=== PATIENT | female | born 1960 | race Caucasian/White ===

== ENCOUNTER 2017-06-16 18:41 | Emergency (ER) | payer SELFPAY ==
[~2017-06-16] VITALS: Ht 152.4 cm; Wt 53.5 kg
[2017-06-16 18:45] VITALS: Ht 152.4 cm; Wt 53.5 kg
[2017-06-16 19:55] LABS: BASOPHILS % 0.4 % (0.0-2.0); EOSINOPHILS # 0.6 10^3/ul (0.0-0.5); EOSINOPHILS % 12.7 % (0.0-7.0); HEMATOCRIT 38.3 % (37.0-47.0); HEMOGLOBIN 12.3 g/dl (12.0-16.0); LYMPHOCYTES # 1.9 10^3/ul (0.8-2.9); LYMPHOCYTES % 38.2 % (15.0-51.0); MEAN CORPUSCULAR HEMOGLOBIN 29.3 pg (29.0-33.0); MEAN CORPUSCULAR HGB CONC 32.1 g/dl (32.0-37.0); MEAN CORPUSCULAR VOLUME 91.2 fl (82.0-101.0); MEAN PLATELET VOLUME 9.4 fl (7.4-10.4); MONOCYTE # 0.5 10^3/ul (0.3-0.9); MONOCYTES % 9.5 % (0.0-11.0); NEUTROPHIL # 1.9 10^3/ul (1.6-7.5); PLATELET COUNT 307 10^3/UL (140-415); RED CELL DISTRIBUTION WIDTH 13.1 % (11.5-14.5)
--- NOTE | 2017-06-16 19:57 | ERA ---
ER Documentation Chief Complaint Date/Time DATE: 06/16/17 TIME: 19:33 Chief Complaint redness both eyes x 2 days (MEET VERA PA-C) HPI 56-year-old female with a chief complaint of left eye redness and pain at 2-3 days. Patient denies any decrease in vision however patient does state that her vision is more blurry. Patient has never had symptoms like this before. Denies contacts or eyeglasses use. No cardiac disorders. History of diabetes mellitus. Denies foreign body sensation, photophobia, history of glaucoma, headache, or fever/chills. Has not taken any medications to relieve the symptoms. Patient has no other complaints and describes no other associated manifestations. Nursing notes have been reviewed and are consistent with history given. (MEET VERA PA-C) ROS All systems reviewed and are negative except as per history of present illness. (MEET VERA PA-C) Medications Home Meds Active Scripts Polymyxin B Sulfate-TMP* (Polymyxin B-TMP Eye Drops*) 10 Ml Drops, 1 DROP LEFT EYE Q3H for 7 Days, EA Prov:MARGIE SEVILLA PA-C 06/16/17 Naproxen* (Naprosyn*) 500 Mg Tablet, 500 MG PO BID for 7 Days, TAB Prov:MARGIE SEVILLA PA-C 06/16/17 Hydrocodone/Acetaminophen ([place] 5-325 Tablet) 1 Each Tablet, 1 EACH PO Q6, #7 TAB Prov:MARGIE SEVILLA PA-C 06/16/17 Clindamycin Hcl* (Clindamycin Hcl*) 300 Mg Capsule, 300 MG PO TID for 10 Days, CAP Prov:MARGIE SEVILLA PA-C 06/16/17 Allergies Allergies: Coded Allergies: No Known Drug Allergies (Verified Allergy, Unknown, 06/16/17) Uncoded Allergies: nka (Allergy, Mild, 05/05/10) PMhx/Soc History of Surgery: Yes (hernia SX) Anesthesia Reaction: No Hx Neurological Disorder: No Hx Respiratory Disorders: No Hx Cardiac Disorders: Yes (HIGH CHOL AND HTN (TREATS WITH HERBAL SUPPLEMENTS).) Hx Psychiatric Problems: No Hx Miscellaneous Medical Probl: No Hx Alcohol Use: No Hx Substance Use: No Hx Tobacco Use: No Smoking Status: Never smoker (MEET VERA PA-C) Physical Exam Vitals Vital Signs Date Time Temp Pulse Resp B/P Pulse Ox O2 Delivery O2 Flow Rate FiO2 06/16/17 18:45 98.1 71 20 138/68 99 (MARGIE SEVILLA PA-C) Physical Exam Const: Well-appearing 56-year-old female no acute distress Head: Atraumatic Eyes: PERRLA. Injected conjunctivae bilaterally. No discharge noted. Extraocular movements intact with the right eye EOMI. Left eye does not track laterally. Moderate pain with extraocular movements of the left eye. Otoscope exam unremarkable. No tenderness to palpation of the periorbital area. Mild erythema spreading 2 cm around the inferior periorbital area. ENT: Normal External Ears, Nose and Mouth. Neck: Full range of motion..~ No meningismus. Resp: Clear to auscultation bilaterally Cardio: Regular rate and rhythm, no murmurs Abd: Soft, non tender, non distended. Normal bowel sounds Skin: No petechiae or rashes Back: No midline or flank tenderness Ext: No cyanosis, or edema Neur: Awake and alert Psych: Normal Mood and Affect (MEET VERA PA-C) Result Diagram: 06/16/17193806/16/171938 Results 24 hrs Laboratory Tests Test 06/16/17 19:39 White Blood Count 5.010^3/ul Red Blood Count 4.2010^6/ul Hemoglobin 12.3g/dl Hematocrit 38.3% Mean Corpuscular Volume 91.2fl Mean Corpuscular Hemoglobin 29.3pg Mean Corpuscular Hemoglobin Concent 32.1g/dl Red Cell Distribution Width 13.1% Platelet Count 84073^3/UL Mean Platelet Volume 9.4fl Neutrophils % 39.0% Lymphocytes % 38.2% Monocytes % 9.5% Eosinophils % 12.7% Basophils % 0.4% Nucleated Red Blood Cells % 0.0/100WBC Neutrophils # 1.910^3/ul Lymphocytes # 1.910^3/ul Monocytes # 0.510^3/ul Eosinophils # 0.610^3/ul Basophils # 0.010^3/ul Nucleated Red Blood Cells # 0.010^3/ul Sodium Level 139mmol/L Potassium Level 3.8mmol/L Chloride Level 108mmol/L Carbon Dioxide Level 26mmol/L Anion Gap 9 Blood Urea Nitrogen 19mg/dl Creatinine 0.79mg/dl Glucose Level 200mg/dl Calcium Level 8.6mg/dl Total Bilirubin 0.0mg/dl Direct Bilirubin 0.00mg/dl Indirect Bilirubin 0.0mg/dl Aspartate Amino Transf (AST/SGOT) 21IU/L Alanine Aminotransferase (ALT/SGPT) 32IU/L Alkaline Phosphatase 100IU/L Total Protein 6.7g/dl Albumin 3.4g/dl Globulin 3.30g/dl Albumin/Globulin Ratio 1.03 Current Medications Medications (Trade) Dose Ordered Sig/Jose Ramon Route PRN Reason Start Time Stop Time Status Last Admin Dose Admin Ibuprofen (Motrin) 600 mg ONCE ONCE PO 06/16/17 21:30 06/16/17 21:31 06/16/17 21:17 (MARGIE SEVILLA PA-C) Procedures/MDM 56-year-old female with a history of hyperlipidemia and diabetes mellitus type 2 presents with a chief complaint of left eye discomfort and redness 2-3 days as described in history and physical examination. Case was presented to my attending. CT scan with contrast was ordered of the orbits. Labs were ordered. Results were as follows: This case has been handed over to JESENIA Horan. (MEET VERA PA-C) PROCEDURE: CT orbits. CLINICAL INDICATION: Left orbital pain and swelling. TECHNIQUE: Helical axial sections were obtained through the orbits without intravenous contrast enhancement. Sagittal and coronal reformatted images were accomplished using the data from the axial images. Total exam DLP is 310.75 mGy -cm. CTDIvol is 29.00 mGy. One or more of the following dose reduction techniques were used: Automated exposure control, adjustment of the mA and/or kV according to patient size, use of iterative reconstruction technique. COMPARISON: No prior study is available for comparison. FINDINGS: There is mild mucosal thickening in the maxillary sinuses. There is no bony abnormality. There is no lytic or blastic lesion. The orbits are normal. The globes are intact. The extraocular muscles and optic nerves are normal. There is deviation of the nasal septum to the right and mucosal thickening overlying the middle and inferior turbinates. There is a left herminio bullosa. The turbinates are otherwise normal. The ostiomeatal complexes are normal. The zygomatic arches and pterygoid plates are normal. IMPRESSION: 1. Mild mucosal thickening in the maxillary sinuses. 2. Deviation of the nasal septum to the right. 3. Mucosal thickening in the nasal cavity. 4. Normal orbits. RPTAT: QQ .Flip Sandoval MD, Date Time Electronically viewed and signed by .Flip Sandoval MD, on 06/16/2017 20:18 .R/ CC: MEET VERA PA-C Patient reevaluated in the emergency department. I agree with initial exam and workup. Patient had evidence of periorbital erythema with mild swelling as well as injection and limited tracking laterally when performing extraocular movements. CT without evidence of periorbital cellulitis Or other abnormality. Updates discussed with Dr. Chiquis Sawyer who agreed with plan to treat for periorbital cellulitis with follow-up to precision mechanical instrument maker if symptoms persist. Patient expressed understanding of and agreement with plan. Based on patient's history of present illness and physical examination the decision was made to discharge. The patient was re-evaluated after ED treatment and stabilizing measures, and symptoms have improved. There is no evidence of life threatening injuries or illnesses at this time. On re-examination, patient resting in no distress, stable vital signs, reports feeling better and safe for discharge with outpatient follow up with PMD in 1-2 days. Patient given return precautions. (MARGIE SEVILLA PA-C) Departure Diagnosis: Primary Impression: Eye abnormality Condition: Stable Additional Instructions: Case is being handed over to JESENIA Horan. MEET VERA PA-C Jun 16, 2017 19:55 MARGIE SEVILLA PA-C Jun 16, 2017 20:30
[2017-06-16 20:18] LABS: ALBUMIN 3.4 g/dl (3.3-4.9); ALBUMIN/GLOBULIN RATIO 1.03; CALCIUM 8.6 mg/dl (8.4-10.2); CREATININE 0.79 mg/dl (0.44-1.00); POTASSIUM 3.8 mmol/L (3.5-5.1); TOTAL PROTEIN 6.7 g/dl (6.1-8.1)
--- NOTE | 2017-06-16 20:19 | RADRPT ---
PROCEDURE: CT orbits. CLINICAL INDICATION: Left orbital pain and swelling. TECHNIQUE: Helical axial sections were obtained through the orbits without intravenous contrast en hancement. Sagittal and coronal reformatted images were accomplished using the data from the axial images. Total exam DLP is 310.75 mGy-cm. CTDIvol is 29.00 mGy. One or more of the following dose reduction techniques were used: Automated exposure control, adjustment of the mA and/or kV according to patient size, use of iterative reconstruction technique. COMPARISON: No prior study is available for comparison. FINDINGS: There is mild mucosal thickening in the maxillary sinuses. There is no bony abnormality. There is no lytic or blastic lesion. The orbits are normal. The globes are intact. The extraocular muscles and optic nerves are normal. There is deviation of the nasal septum to the right and mucosal thickening overlying the middle and inferior turbinates. There is a left herminio bullosa. The turbinates are otherwise normal. The ostiomeatal complexes are normal. The zygomatic arches and pterygoid plates are normal. IMPRESSION: 1. Mild mucosal thickening in the maxillary sinuses. 2. Deviation of the nasal septum to the right. 3. Mucosal thickening in the nasal cavity. 4. Normal orbits. RPTAT: QQ .Flip Sandoval MD, MD Date Time Electronically viewed and signed by .Flip Sandoval MD, on 06/16/2017 20:18 .R/
[2017-06-16] MEDS ORDERED: POLY10DR19 LEFT EYE (21:18)
[2017-06-16] MEDS ORDERED: CLIN-73 PO (21:18)
[2017-06-16] MEDS ORDERED: NAPR-260 PO (21:18)
[2017-06-16] MEDS ORDERED: HYDR-906 PO (21:18)
[2017-06-16] MEDS ORDERED: IBUPROFEN 600 MG TAB PO ONE (21:30)
[2017-06-16] MEDS ORDERED: CLINDAMYCIN 300 MG INJ IM ONE (21:30)
[2017-06-16 22:10] VITALS: BP 152/84; PULSE 63; RESP 17; TEMP 97.8
== END 2017-06-16 22:10 | disposition home or self-care (01) ==
LOC: FTE 18:41
DX: H57.8 Other specified disorders of eye and adnexa (principal); I10 Essential (primary) hypertension
CPT/HCPCS: 70480; 80053; 85025; 96372

== ENCOUNTER 2018-12-12 20:07 | Emergency (ER) | payer MEDICAID, OTHER ==
[~2018-12-12] VITALS: Ht 165.1 cm; Wt 60.0 kg
[~2018-12-12 20:07] MED LIST: CLIN300C10 PO; HYDR-4011 PO; NAPR-985 PO; POLY10DR19 LEFT EYE
[2018-12-12 20:12] VITALS: Ht 165.1 cm; Wt 60.0 kg
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
[2018-12-12] MEDS ORDERED: HYDROCODONE/APAP (5/325) TAB PO ONE (22:00)
[2018-12-12] MEDS ORDERED: ACETAMINOPHEN 500 MG TAB PO STA (22:29)
[2018-12-12] MEDS ORDERED: META-121 PO (23:58)
[2018-12-12] MEDS ORDERED: IBUP-1542 PO (23:58)
[2018-12-13 01:18] VITALS: BP 117/68; PULSE 61; RESP 16
== END 2018-12-13 01:19 | disposition home or self-care (01) ==
LOC: FTE 20:07
DX: S06.0X0A Concussion without loss of consciousness, initial encounter (principal); I10 Essential (primary) hypertension; E11.9 Type 2 diabetes mellitus without complications; S10.93XA Contusion of unspecified part of neck, initial encounter; S20.219A Contusion of unspecified front wall of thorax, initial encounter; M62.838 Other muscle spasm; Y04.8XXA Assault by other bodily force, initial encounter
CPT/HCPCS: 70450; 71046; 72040; Z7610

== ENCOUNTER 2019-05-13 10:41 | Emergency (ER) | payer OTHER ==
[~2019-05-13] VITALS: Ht 152.4 cm; Wt 55.6 kg
[~2019-05-13 10:41] MED LIST changes: +IBUP-1542 PO; +META-121 PO
[2019-05-13 10:52] VITALS: Ht 152.4 cm; Wt 55.6 kg
[2019-05-13] MEDS ORDERED: ACETAMINOPHEN 500 MG TAB PO STA (11:05)
[2019-05-13 14:38] VITALS: BP 116/56; PULSE 74; RESP 18
== END 2019-05-13 14:42 | disposition home or self-care (01) ==
LOC: FTE 10:41
DX: S92.511A Displaced fracture of proximal phalanx of right lesser toe(s), initial encounter for closed fracture (principal); I10 Essential (primary) hypertension; E11.9 Type 2 diabetes mellitus without complications; W22.8XXA Striking against or struck by other objects, initial encounter; Y92.9 Unspecified place or not applicable
CPT/HCPCS: 73630; Z7502; Z7610

== ENCOUNTER 2019-06-17 15:12 | Emergency (ER) | payer OTHER ==
[~2019-06-17] VITALS: Ht 160 cm; Wt 55.7 kg
[~2019-06-17 15:12] MED LIST changes: +CROM10DR6 BOTH EYES; +MONT10TA21 PO; +PRED20TA PO; +TRIA15CR55 TOP
[2019-06-17 15:16] VITALS: BP 119/69; PULSE 78; RESP 20; Ht 160 cm; Wt 55.7 kg
== END 2019-06-17 15:56 | disposition home or self-care (01) ==
LOC: E/R 15:12
DX: J30.2 Other seasonal allergic rhinitis (principal); I10 Essential (primary) hypertension
CPT/HCPCS: 99283